=== PATIENT | female | born 1955 | race Caucasian/White ===

== ENCOUNTER 2020-01-21 13:50 | Emergency (ER) | payer MEDICARE ==
[~2020-01-21] VITALS: Ht 167.6 cm; Wt 63.5 kg
[~2020-01-21 13:50] MED LIST: EFFEXOR XR37.5 MG PO; ESTRADIOL1 MG PO; GLUCOPHAGE500 MG PO; NAPROXEN500 MG PO; TOPAMAX25 MG PO; TRAMADOL HCL50 MG PO
[2020-01-21] MEDS ORDERED: IPRAT-ALBUT 0.5-3 ML INH (16:41)
[2020-01-21] MEDS ORDERED: PREDNISONE20 MG PO (16:41)
--- NOTE | 2020-01-22 06:41 | EKG ---
[facility] [address] [facility] [place] [address] Signed Normal sinus rhythm Nonspecific ST abnormality Abnormal ECG No previous ECGs available Confirmed by ADRIEL MANDUJANO MD ([id number] on 01/22/2020 6:41:00 AM Electronically Signed By: ADRIEL MANDUJANO MD 01/22/20 0641 PATIENT NAME: PABLO GUAJARDO GUILLERMO Electrocardiogram DATE OF : 51 PHYSICIAN: ADRIEL MANDUJANO MD REPORT #: [id number] REPORT IS CONFIDENTIAL AND NOT TO BE RELEASED WITHOUT AUTHORIZATION
== END 2020-01-21 17:08 | disposition home or self-care (01) ==
LOC: ED 13:50
DX: J45.901 Unspecified asthma with (acute) exacerbation (principal); E11.9 Type 2 diabetes mellitus without complications; F17.200 Nicotine dependence, unspecified, uncomplicated; Z88.5 Allergy status to narcotic agent; Z88.0 Allergy status to penicillin; Z79.899 Other long term (current) drug therapy; Z79.84 Long term (current) use of oral hypoglycemic drugs
CPT/HCPCS: 71046; 80053; 83735; 84484; 85025; 93005; 93010; 99285-25; J7512; U0002